=== PATIENT | female | born 1980 | race Caucasian/White ===

== ENCOUNTER 2018-04-07 06:54 | Day surgery (SDC) | payer BC ==
[2018-04-04 16:20] VITALS: BMI 52.9
--- NOTE | 2018-04-07 06:20 | P.GSHP ---
History of Present Illness H&P Date: 04/07/18 CHIEF COMPLAINT: Ventral hernia. HISTORY OF PRESENT ILLNESS: The patient is a 38-year-old female who presents with a history of swelling along the umbilicus. Findings were consistent with possible incisional hernia. Now she presents for further evaluation and management. PAST MEDICAL HISTORY: Please see list. PAST SURGICAL HISTORY: Please see list. MEDICATIONS: Please see list. ALLERGIES: Please see list. SOCIAL HISTORY: No illicit drug use FAMILY HISTORY: No reports of Crohn disease or ulcerative colitis. REVIEW OF ORGAN SYSTEMS: CONSTITUTIONAL: No reports of fevers or chills. GI: Denies any blood in stools or constipation. PHYSICAL EXAM: VITAL SIGNS: Stable GENERAL: Well-developed pleasant female in no acute distress. HEENT: No scleral icterus. Extraocular movements grossly intact. Moist buccal mucosa. NECK: Supple without lymphadenopathy. CHEST: Unlabored respirations. Equal bilateral excursions. CARDIOVASCULAR: Regular rate and rhythm. Distal 2+ pulses. ABDOMEN: Soft, nondistended. Hernia at the umbilicus. Protuberant. MUSCULOSKELETAL: No clubbing, cyanosis, or edema. ASSESSMENT: 1. Incarcerated umbilical initial ventral hernia, 4 cm. 2. Morbid obesity with BMI over 50. 3. Family history of hernias. PLAN: 1. Robotic assisted ventral hernia repair with mesh was described, at least 1.5 hours. 2. She denies any personal history of DVTs or cardiac disease. Overall, intermediate risk with BMI over 50. 3. DVT prophylaxis. 4. Antibiotics prophylaxis. 5. Time off of work at least 4 weeks was described. Past Medical History Past Medical History: Asthma, GERD/Reflux History of Any Multi-Drug Resistant Organisms: None Reported Past Surgical History: Tonsillectomy, Tubal Ligation Additional Past Surgical History / Comment(s): repair of lacerations right leg & left arm from accident years ago Past Anesthesia/Blood Transfusion Reactions: No Reported Reaction Smoking Status: Current every day smoker - Past Family History Mother Family Medical History: No Reported History Medications and Allergies Home Medications Medication Instructions Recorded Confirmed Type Albuterol Inhaler [Ventolin Hfa 1 - 2 puff INHALATION RT-Q6H PRN 04/04/18 History Inhaler] Cetirizine HCl [Zyrtec] 10 mg PO DAILY PRN 04/04/18 04/04/18 History Ibuprofen [Advil] 200 - 400 mg PO Q6HR PRN 04/04/18 04/04/18 History Allergies Allergy/AdvReac Type Severity Reaction Status Date / Time No Known Allergies Allergy Verified 04/04/18 15:48
[~2018-04-07 06:54] MED LIST: DEXAMETHASONE SOD PHOSPHATE 10 MG/ML 1 ML VIAL IV ONE; HEPARIN SODIUM,PORCINE 5,000 UNIT/ML 1 ML VIAL SQ ONE; LACTATED RINGERS 1,000 ML IV SCH; MIDAZOLAM (PF) 2 MG/2 ML VIAL IV PRN; ONDANSETRON 4 MG/2 ML VIAL IVP ONE; SCOPOLAMINE 1.5MG/72HR PATCH TRANSDERM ONE
[2018-04-07] MEDS ORDERED: LIDOCAINE 1% 20 ML VIAL (10MG/ML) FOR IV START INTRADERMA ONE (08:15)
[2018-04-07] MEDS ORDERED: fentaNYL (PF) 50 MCG/ML 2 ML AMP IV ONE (08:44)
[2018-04-07] MEDS ORDERED: fentaNYL (PF) 50 MCG/ML 2 ML AMP IVP ONE (08:46)
[2018-04-07] MEDS ORDERED: GLYCOPYRROLATE 0.2 MG/ML 2 ML VIAL ONE (09:06)
[2018-04-07] MEDS ORDERED: ROPIVACAINE 5 MG/ML 30 ML VIAL ONE (09:06)
[2018-04-07] MEDS ORDERED: NEOSTIGMINE 1 MG/ML 10 ML VIAL ONE (09:06)
[2018-04-07] MEDS ORDERED: HYDROmorphone (PF) 1 MG/ML ONE (09:06)
[2018-04-07] MEDS ORDERED: fentaNYL (PF) 50 MCG/ML 2 ML AMP ONE (09:06)
[2018-04-07] MEDS ORDERED: SUCCINYLCHOLINE CHLORIDE VIAL 200 MG/10 ML VIAL IV ONE (09:06)
[2018-04-07] MEDS ORDERED: ROCURONIUM BROMIDE 10 MG/ML 10 ML VIAL IV ONE (09:06)
[2018-04-07] MEDS ORDERED: LIDOCAINE 1% INJ 10MG/ML (20 ML MDV) ONE (09:06)
[2018-04-07] MEDS ORDERED: PROPOFOL 10 MG/ML 20 ML VIAL IV ONE (09:06)
[2018-04-07 09:30] LABS: HCT 38.4 % (34.0-46.0); HGB 12.3 gm/dL (11.4-16.0); MCH 28.1 pg (25.0-35.0); MCV 87.8 fL (80.0-100.0); Mean Platelet Volume 8.7; Platelet Count 251 k/uL (150-450); RBC 4.37 m/uL (3.80-5.40); RDW 14.2 % (11.5-15.5); WBC 11.6 k/uL (3.8-10.6)
[2018-04-07 09:39] LABS: Potassium 4.2 mmol/L (3.5-5.1)
[2018-04-07] MEDS ORDERED: BUPIVACAIN-EPI 0.25%-1:200,000 30 ML VIAL SQ ONE (09:40)
[2018-04-07] MEDS ORDERED: LACTATED RINGERS 1,000 ML IV ONE (09:41)
[2018-04-07] MEDS: HYDROmorphone 0.5 MG/0.5 ML SYRINGE IVP PRN ×4 (10:37→11:03)
--- NOTE | 2018-04-07 10:39 | P.OP ---
Date of Procedure: 04/07/18 Description of Procedure: SURGEON: HERACILO ROSE MD PREOPERATIVE DIAGNOSES: 1. Initial umbilical hernia with incarceration 2. Morbid obesity does due to excess calories, BMI 53.9 3. Chronic obstructive pulmonary disease with asthma 4. Tobacco abuse 5. Gastroesophageal reflux disease POSTOPERATIVE DIAGNOSES: 1. Initial umbilical hernia with incarceration, 4-cm involving transverse mesocolon 2. Morbid obesity does due to excess calories, BMI 53.9 3. Chronic obstructive pulmonary disease with asthma 4. Tobacco abuse 5. Gastroesophageal reflux disease OPERATION: 1. Robotic-assisted da Kaila Xi laparoscopic repair of initial incarcerated ventral hernia 4-cm with mesh, ventralight ST mesh 11.4 cm ANESTHESIA: General with local ESTIMATED BLOOD LOSS: 5 mL. SPECIMENS: None COMPLICATIONS: None. INDICATIONS: The patient is a 38-year-old female who presents ventral hernia of the umbilicus. Surgical intervention with laparoscopic versus robotic and open techniques were reviewed. Placement of mesh was also reviewed. Benefits and risks were thoroughly described. Informed consent was obtained. DESCRIPTION OF PROCEDURE: The patient was brought into the operating room and laid in supine position. After general induction, the abdomen had been prepped and draped in standard sterile fashion. Ioban draping was also placed. Prior to incision, a timeout protocol was confirmed with surgical team regarding the patient's name including procedures to be performed. The robot was primed prior to the procedure. A field block using local anesthetic was placed along hernia site including the proposed port sites. Initial incision was made with an #11 blade along the left upper quadrant. A 0 degree 5 mm laparoscopic trocar entry was performed and insufflated. An 8 mm port was placed along the right upper quadrant and another at the epigastrium under direct localization. The 5- mm port was exchanged for an 12 mm robotic port. Placements of the ports were 15 cm from the target anatomy and 10 cm apart. The Kite.lyi Xi robot was previously primed, prepped and draped then docked along the right side of the patient. I then sat at the robot Hastify Kaila Xi console where working arms of the robot including Bovie cautery connected to robotic scissors, vessel sealer, needle mobile lounge driver, and graspers placed by the educational program assistant. Fascial defect of 4 cm of the umbilicus was identified after cleaning the peritoneal fat of the abdominal wall and reducing an incarcerated transverse mesocolon of the mid transverse colon. A 12 mm port was placed along the left upper quadrant for placement of the mesh and for sutures. The incarcerated contents was reduced as the peritoneal fat was cleaned from the abdominal wall. Next, hemostasis was checked with cautery. The hernia defect was oversewn using #1 Stratafix with fascial imbrication x 3. Next, ventralight ST mesh 11.4 cm was placed with the rough side towards the abdominal wall. 2-0 VLOC 9 inch sutures were used to fixate the mesh. A final endoscopic imaging was obtained. All instruments and pneumoperitoneum were evacuated from the abdominal cavity. The da Kaila Xi robot was undocked from the patient. I re-scrubbed into the case for closure of incisions. The fascia of the 12-mm port was probed and less than 8-mm in size. The incisions were reapproximated using 4-0 Monocryl in an interrupted subcuticular fashion. Liquid glue was applied to the skin after cleansing the skin with normal saline and dilute hydrogen peroxide. An abdominal binder was placed. An umbilical dressing was placed prior. At the end of the procedure, needle, sponge, and instrument count had been verified correct by surgical supply assistant. The patient was taken to the postanesthesia care unit in stable condition. FINDINGS: 1. Initial incarcerated umbilical 4-cm hernia involving mid transverse mesocolon with intermittent bowel obstruction Plan - Discharge Summary New Discharge Prescriptions: No Action Ibuprofen [Advil] 200 - 400 mg PO Q6HR PRN PRN Reason: Pain Cetirizine HCl [Zyrtec] 10 mg PO DAILY PRN PRN Reason: allergies Albuterol Inhaler [Ventolin Hfa Inhaler] 1 - 2 puff INHALATION RT-Q6H PRN PRN Reason: Dyspnea Discharge Medication List Albuterol Inhaler [Ventolin Hfa Inhaler] 1 - 2 puff INHALATION RT-Q6H PRN [History] Cetirizine HCl [Zyrtec] 10 mg PO DAILY PRN 04/04/18 [History] Ibuprofen [Advil] 200 - 400 mg PO Q6HR PRN 04/04/18 [History]
[2018-04-07 10:43] VITALS: TEMP 97.8
--- NOTE | 2018-04-07 11:21 | P.ONQ ---
Anesthesiology Proc Note - PNB - Peripheral Nerve Block Performed Bilateral Rectus Abdominis Single Time Out Performed: Yes (0835) Procedure Start Time: 08:35 Procedure Stop Time: 08:45 Indication: Acute Post-Operative Pain, Dx/Pain Location (abdominal pain), Requested by physician Sedation Type: Sedate with meaningful contact maintained Preparation: Sterile Prep Position: Supine Catheter: None Needle Types: On-Q Needle Size: 100mm (4") Needle Gauge: 21 Technique: Ultrasound Injectate: 0.5% Ropivacaine (see comment for volume) (20ml 0.25% Ropivacaine each side) Blood Aspirated: No Pain Paresthesia on Injection Noted: No Resistance on Injection: Normal Events: Uneventful and Well Tolerated
[2018-04-07] MEDS ORDERED: diphenhydrAMINE 50 MG/ML 1 ML VIAL IVP ONE (11:32)
[2018-04-07 11:44] VITALS: RESP 16
[2018-04-07 12:15] VITALS: BP 114/70; PULSE 62
== END 2018-04-07 12:52 | disposition home or self-care (01) ==
LOC: OR 06:54
PROVIDERS: ATTEND Surgery Plastic and Reconstructive Surgery
DX: K42.0 Umbilical hernia with obstruction, without gangrene (principal); K43.6 Other and unspecified ventral hernia with obstruction, without gangrene; E66.01 Morbid (severe) obesity due to excess calories; J44.9 Chronic obstructive pulmonary disease, unspecified; F17.210 Nicotine dependence, cigarettes, uncomplicated; K21.9 Gastro-esophageal reflux disease without esophagitis; Z68.43 Body mass index [BMI] 50.0-59.9, adult; Z98.51 Tubal ligation status
CPT/HCPCS: 81025; 80051; 85027; 49653; 64488; C1781; J0330; J1200; J1644; J1100; J2710; J0690; J2405; J2001; J3010; J1170 ×2; J2795; J2704; J2250

== ENCOUNTER → 2019-02-26 | Outpatient (CLI) | payer OTHER ==
[2019-02-26 11:41] VITALS: PULSE 84; RESP 18
[2019-02-26 11:45] VITALS: BP 135/82
--- NOTE | 2019-02-28 07:40 | P.PAINCN ---
History of Present Illness - Reason for Consult Consult date: 02/26/19 - History of Present Illness This is a 39-year-old morbidly obese patient referred by Dr. Tristan Martinez with a chief complaint of chronic pain in low back,which began in October 2018 without any inciting event. Pain radiates to right buttock, posterior thigh, posterior calf, ankle associated with burning in right big toe. pain in her back is responsible for 60-80% of the pain, and right leg pain is responsible from 20- 40% of the pain. 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 she also has swelling of right lower extremity, localized to the medial aspect of leg, just below the knee, this is not painful. She has tried several different medications including Flexeril, which makes her too sleepy as well as intramuscular steroid and oral steroid pack testes helped for a few days, she was also prescribed tramadol about 1 month ago, which was helping, however she no longer has a prescription for it. She is currently taking Motrin up to 4 times a daymore than 2400 mg daily. she completed physical therapy mid January, she is doing he r exercises at home, she noted that the TENS provided her most benefit. Patient also denies new-onset weakness, bowel/bladder incontinence, or any other signs or symptoms of cauda equina syndrome. There are no signs of acute intoxication, and no indications of medication diversion or overuse. Patient HAS NOT had surgery. Patient HAS NOT had injections previously. In addition to above, 13-point review of systems is also negative for chest pain, shortness of breath, changes in vision, changes in hearing, new onset weakness, abdominal pain, diarrhea, extreme fatigue, malaise, fever, skin jered nges, homicidal or suicidal ideation, or bowel or bladder incontinence. Physical exam: Vital Signs: Reviewed in EMR GENERAL: Well appearing, in no acute distress, morbidly obese PSYCH: Mood and affect is appropriate. Awake, alert, and oriented SKIN: Skin color, texture, turgor normal, no rashes or lesions HEENT: Normocephalic, atraumatic. EOM intact CV: No pedal edema RESP: Respirations are unlabored, no audible wheezing GI: Abdomen non-distended MUSCULOSKELETAL: Bilateral lower extremity strength is normal and symmetric. No atrophy or tone abnormalities are noted.Swelling noted on medial aspect of leg, just below right knee, nontender to palpation. Patient does have some visible varicose veins on the right side. Lumbar spine: Straight leg raising in the sitting position is positive on the right side for radicular pain. tenderness to palpation over the lumbar spine and paraspinous muscles, more on the right. positive for pain with facet loading and back extension/rotation. Limited range of motion due to pain Buttocks: No pain to palpation over the PSIS, Yoselyn test is negative Extremities: Peripheral joint ROM is full and pain free without obvious instability or laxity in all four extremities. No edema or skin discolorations noted. Gait: Gait is normal NEUR: Bilateral lower extremity coordination and muscle stretch reflexes are physiologic and symmetric. Negative clonus. No loss of sensation is noted. Cranial nerves are grossly intact. Imaging: MRI lumbar spine done on 02/01/2019 at [facility] MRI shows scattered degenerative changes most pronounced at L4-5 with grade 1 anterolisthesis of L4 on L5 and facet hypertrophic changes yielding minimal central canal stenosis and mild bilateral neuroforaminal narrowing. Assessment: 1. lumbar radiculopathy 2. lumbar spondylosis 3. morbid obesity 4. Chronic nicotine dependence Plan: 1. Explanation: I counseled her on the side effects of Motrin and advised her to take it within the prescribed limits, she is taking over 2400 mg per day 2. Opioid agreement: none 3. Counseling: The patient was counseled performance on SMOKING CESSATION, BODY MASS INDEX, EXERCISE. Specifically, the patient was instructed regarding the importance of smoking cessation, weight control, and exercise in the context of both chronic pain and overall health. 4. Procedures: we will schedule right-sided transforaminal epidural steroid in jection at L4-5. If no benefit from this, patient might benefit from lumbar medial branch workup 5. Consultations: none 6. Investigations: MRI lumbar spine reviewed 7. Medications: patient was counseled on limiting total daily Motrin dose 8. Disposition: for above-mentioned procedure Past Medical History Past Medical History: Asthma, GERD/Reflux, Musculoskeletal Disorder History of Any Multi-Drug Resistant Organisms: None Reported Past Surgical History: Hernia Repair, Tonsillectomy, Tubal Ligation Additional Past Surgical History / Comment(s): repair of lacerations right leg & left arm from accident years ago, robotic repair of ventral hernia Past Anesthesia/Blood Transfusion Reactions: No Reported Reaction Smoking Status: Current every day smoker - Past Family History Mother Family Medical History: No Reported History Medications and Allergies Home Medications Medication Instructions Recorded Confirmed Type Albuterol Inhaler [Ventolin Hfa 1 - 2 puff INHALATION RT-Q6H PRN 04/04/18 02/23/19 History Inhaler] Cetirizine HCl [Zyrtec] 10 mg PO DAILY PRN 04/04/18 02/23/19 History Ibuprofen [Advil] 600 - 800 mg PO Q6HR PRN 04/04/18 02/23/19 History Allergies Allergy/AdvReac Type Severity Reaction Status Date / Time No Known Allergies Allergy Verified 02/23/19 14:28 PQRS Measure Charge Sheet Measure #130: Documentation of Current Meds in Medical Chart: Patient's medications documented in chart Measure #226: Tobacco Use: Screen & Cessation Intervention: Pt screened for tobacco use AND intervention given Measure #111: Pneumonia Vaccination: Pneumococcal vaccine administered or previously received Measure #47: Advance Care Plan: Advance care planning discussed & documented, pt chose/unable to give Measure #412: Opioid Treatment Agreement: No documentation of signed opioid treatment agreement Measure #317: Preventitive Care & Scrn High Bld Press & F/U: Normal blood pressure, f/u not required Measure #128: Body Mass Index (BMI) Screening & Follow-up: BMI documented ABOVE normal parameters - f/u documented Measure #131: Pain Assessment & Follow-up: Pain positive & plan documented, Follow-up scheduled Measure #431: Unhealthy Alcohol Use Preventative Care & Scrn: Patient not identified as an unhealthy alcohol user PQRS Narrative: Smoking Status Current every day smoker Blood Pressure 135/82 Pain Intensity [Back] 6 Scale Used Numeric (1 - 10) Hx Alcohol Use (MH) Yes Home Medications: Ambulatory Orders Albuterol Inhaler [Ventolin Hfa Inhaler] 1 - 2 puff INHALATION RT-Q6H PRN 04/04/18 Cetirizine HCl [Zyrtec] 10 mg PO DAILY PRN 04/04/18 Ibuprofen [Advil] 600 - 800 mg PO Q6HR PRN 04/04/18
== END | disposition home or self-care (01) ==
LOC: PNWHC3 11:25
PROVIDERS: ATTEND Anesthesiology
DX: G89.29 Other chronic pain (principal); M51.36 Other intervertebral disc degeneration, lumbar region; M47.26 Other spondylosis with radiculopathy, lumbar region; E66.01 Morbid (severe) obesity due to excess calories; M51.16 Intervertebral disc disorders with radiculopathy, lumbar region; F17.200 Nicotine dependence, unspecified, uncomplicated; Z68.43 Body mass index [BMI] 50.0-59.9, adult; Z79.899 Other long term (current) drug therapy
CPT/HCPCS: 99211

== ENCOUNTER 2019-03-26 08:54 | Day surgery (SDC) | payer OTHER ==
[2019-03-23 09:47] VITALS: BMI 55.7
[~2019-03-26 08:54] MED LIST changes: -DEXAMETHASONE SOD PHOSPHATE 10 MG/ML 1 ML VIAL IV ONE; -HEPARIN SODIUM,PORCINE 5,000 UNIT/ML 1 ML VIAL SQ ONE; +IOPAMIDOL M200 10 ML VIAL ONE; -MIDAZOLAM (PF) 2 MG/2 ML VIAL IV PRN; -ONDANSETRON 4 MG/2 ML VIAL IVP ONE; -SCOPOLAMINE 1.5MG/72HR PATCH TRANSDERM ONE; +methylPREDNISolone ACETATE 80 MG/ML 1 ML VIAL ONE
[2019-03-26 09:18] VITALS: RESP 16; TEMP 97.6
--- NOTE | 2019-03-26 09:43 | P.PCN ---
Date of Procedure: 03/26/19 Procedure(s) Performed: PREOPERATIVE DIAGNOSIS: 1-Lumbar radiculopathy 2-lumbar spondylosis with lumbar facet arthropathy without myelopathy POSTOPERATIVE DIAGNOSIS: Same as preop diagnosis PROCEDURE 1. Transforaminal epidural steroid injection under fluoroscopic guidance at right L4-5 level. (Fluoroscopy images stored on file in the radiology Department ) 2. Lumbar epidurogram : ANESTHESIA: Local with 1% lidocaine 3 ml only ( NO IV sedations ) EBL: Minimal PROCEDURE INDICATION: The patient with low back pain and radiculopathy symptoms unresponsive to conservative treatment. PROCEDURE DESCRIPTION / TECHNIQUE: The patient was seen and identified in the preoperative area. Risks, benefits, complications, and alternatives were discussed with the patient. The patient agreed to proceed with the procedure and signed the consent. IV was started, and vital signs were stable. Patient was taken to the OR and time out was completed. The patient was placed in the prone position on procedure table and a pillow was placed under the abdomen to reduce lumbar lordosis. The lumbosacral area was prepped and draped in the usual sterile fashion. Critical pause was taken. Vital signs were closely monitored during the procedure. Using oblique fluoroscopy, the chin of the ``Deng dog at right L4-5 level was identified, and the skin and deeper tissues just below was localized with 1% lidocaine. Subsequently, a 22-gauge 5 inch spinal needle was advanced under a tunneled view fluoroscopic guidance just underneath the chin of the ``Deng dog at the right L4-5 . Under lateral fluoroscopy, the needle was then advanced to the posterior border of the right L4-5 interforaminal space. After negative aspiration of CSF and blood and with no paresthesias, 1 mL Isovue 200 contrast dye was injected excellent epidurogram and outlining of the right nerve root Subsequently, 3 mL of block solution containing 80 mg per Medrol and 2 mL of Lidocaine 1% was injected. Needle was removed intact . At the end of the proc edure, skin was cleansed, and bandages were applied. COMPLICATIONS:none DISPOSITION / PLANS: The patient was placed in a supine position and transferred to the recovery area in a stable condition for observation. There was no evidence of lower extremity motor or sensory deficit after the procedure. Patient was discharged from the recovery room after meeting discharge criteria. Home discharge instructions were given to the patient by the staff. The patient was reexamined prior to discharge.
[2019-03-26 10:01] VITALS: BP 109/73; PULSE 83
--- NOTE | 2019-03-26 10:55 | FL ---
EXAMINATION TYPE: FL guided pain mgmt statistic DATE OF EXAM: 03/26/2019 CLINICAL HISTORY: Low back pain. TECHNIQUE: Fluoroscopy. COMPARISON: None. FINDINGS: Fluoroscopic guidance was provided during pain relief procedure performed by Dr. Valdez . A total of 6 seconds of fluoroscopic time was utilized during the procedure and two spot images ar e acquired. Images acquired shows needle localization of the lumbar spine. IMPRESSION: As Above.
== END 2019-03-26 10:20 | disposition home or self-care (01) ==
LOC: ORPAIN 08:54
PROVIDERS: ATTEND Specialist
DX: M47.26 Other spondylosis with radiculopathy, lumbar region (principal)
CPT/HCPCS: 81025; 64483; J1040; Q9966

== ENCOUNTER 2019-04-23 09:06 | Day surgery (SDC) | payer OTHER ==
[2019-04-20 09:07] VITALS: BMI 57.0
[~2019-04-23 09:06] MED LIST changes: +LIDOCAINE 1% INJ 10MG/ML (20 ML MDV) ONE
[2019-04-23 09:32] VITALS: RESP 18; TEMP 97.3
--- NOTE | 2019-04-23 10:08 | P.PCN ---
Date of Procedure: 04/23/19 Procedure(s) Performed: PREOPERATIVE DIAGNOSIS: 1-Lumbar radiculopathy 2-lumbar spondylosis with lumbar facet arthropathy without myelopathy POSTOPERATIVE DIAGNOSIS: Same as preop diagnosis PROCEDURE 1. Transforaminal epidural steroid injection under fluoroscopic guidance at right L4-5 level. (Fluoroscopy images stored on file in the radiology Department ) 2. Lumbar epidurogram : ANESTHESIA: Local with 1% lidocaine 3 ml only ( NO IV sedations ) EBL: Minimal PROCEDURE INDICATION: The patient with low back pain and radiculopathy symptoms unresponsive to conservative treatment. PROCEDURE DESCRIPTION / TECHNIQUE: The patient was seen and identified in the preoperative area. Risks, benefits, complications, and alternatives were discussed with the patient. The patient agreed to proceed with the procedure and signed the consent. IV was started, and vital signs were stable. Patient was taken to the OR and time out was completed. The patient was placed in the prone position on procedure table and a pillow was placed under the abdomen to reduce lumbar lordosis. The lumbosacral area was prepped and draped in the usual sterile fashion. Critical pause was taken. Vital signs were closely monitored during the procedure. Using oblique fluoroscopy, the chin of the ``Deng dog at right L4-5 level was identified, and the skin and deeper tissues just below was localized with 1% lidocaine. Subsequently, a 22-gauge 5 inch spinal needle was advanced under a tunneled view fluoroscopic guidance just underneath the chin of the ``Deng dog at the right L4-5 . Under lateral fluoroscopy, the needle was then advanced to the posterior border of the right L4-5 interforaminal space. After negative aspiration of CSF and blood and with no paresthesias, 1 mL Isovue 200 contrast dye was injected excellent epidurogram and outlining of the right nerve root Subsequently, 3 mL of block solution containing 80 mg per Depo-Medrol and 2 mL of Lidocaine 1% was injected. Needle was removed intact . At the end of the procedure, skin was cleansed, and bandages were applied. COMPLICATIONS:none DISPOSITION / PLANS: The patient was placed in a supine position and transferred to the recovery area in a stable condition for observation. There was no evidence of lower extremity motor or sensory deficit after the procedure. Patient was discharged from the recovery room after meeting discharge criteria. Home discharge instructions were given to the patient by the staff. The patient was reexamined prior to discharge.
--- NOTE | 2019-04-23 10:18 | FL ---
EXAMINATION TYPE: FL guided pain mgmt statistic DATE OF EXAM: 04/23/2019 CLINICAL HISTORY: Low back pain. TECHNIQUE: Fluoroscopy. COMPARISON: None. FINDINGS: Fluoroscopic guidance was provided during pain relief procedure performed by Dr. Valdez . A total of 7 seconds of fluoroscopic time was utilized during the procedure and 1 spot images are acquired. Images acquired shows needle localization of the lumbar spine. IMPRESSION: As Above.
[2019-04-23 10:46] VITALS: BP 127/80; PULSE 80
== END 2019-04-23 10:45 | disposition home or self-care (01) ==
LOC: PNWHC3 09:06
PROVIDERS: ATTEND Specialist
DX: M47.26 Other spondylosis with radiculopathy, lumbar region (principal)
CPT/HCPCS: 81025; 64483; J1040; J2001; Q9966

== ENCOUNTER → 2020-05-08 | Outpatient (CLI) | payer OTHER ==
[2020-05-08 13:16] VITALS: BP 138/90; PULSE 73; RESP 18
--- NOTE | 2020-05-08 14:09 | P.GSHP ---
History of Present Illness H&P Date: 05/08/20 Chief Complaint: Questionable mammographic abnormality in the left breast Susy is a 40-year-old white female who is being seen in consultation for Dr. Andujar, nurse practitioner Radha Srinivasan regarding a questionable asymmetric density in the lower outer aspect of the left breast. This was her first mammogram. [place] [address] this was 3-D screening. On that evaluation there was noted to be an asymmetric density in the lower outer aspect of the left breast and spot compression [place] [address]. On these a persistent density was noted an ultrasound of the left breast was recommended. This was performed on the same date and it was felt that there was no ultrasound abnormality to correspond to the radiographic mammographic abnormality. There was a lesion in the skin which was 1 x 0.8 cm. It was therefore recommended a stereotactic core biopsy be performed. However the patient today had repeat left breast mammogram performed and on the repeat left breast mammogram there is no persistence of the density. The patient does not feel any lumps masses or nodules in either breast. She is not complaining of any nipple discharge or skin changes. She is not complaining of any trauma or infection in the breast. Caffeine: One pop per day Nicotine: 1 PPD/12 years lary-bromine: occasional hormones: none Family history: Maternal great-grandmother breast cancer Hormonal history: Menarche:13 , breast fed: no periods regular, heavy BCP: 7 years, stopped 15 years ago Surgical history: Right leg and left arm secondary to trauma Tubal ligation Abdominal hernia Medical history: Asthma Obesity Pain lower back with shooting into the knee bone on boen piain in her left knee Social History: smoke: 1 PPD Alcohol: Negative Drugs: Negative - Constitutional Constitutional: Denies chills, Denies fever - EENT Eyes: denies blurred vision, denies pain Ears: deny: decreased hearing, tinnitus Ears, nose, mouth and throat: Denies headache, Denies sore throat - Breasts Breasts: bilateral: as per HPI - Cardiovascular Cardiovascular: Denies chest pain, Denies shortness of breath - Respiratory Comment: asthma - Gastrointestinal Gastrointestinal: Denies abdominal pain, Denies diarrhea, Denies nausea, Denies vomiting - Genitourinary (Female) Genitourinary: Denies dysuria, Denies hematuria - Menstruation Comment: recent ultrasound noted thickening of uterus to follow up with terrazzo finisher - Musculoskeletal Musculoskeletal: Reports as per HPI - Integumentary Integumentary: Denies pruritus, Denies rash - Neurological Comment: shooting pain down left leg Neurological: Reports as per HPI - Psychiatric Psychiatric: Denies anxiety, Denies depression - Endocrine Endocrine: Denies fatigue, Denies weight change - Hematologic/Lymphatic Comment: none - Allergic/Immunologic Allergic/Immunologic: Reports seasonal allergies Past Medical History Past Medical History: Asthma, GERD/Reflux, Musculoskeletal Disorder History of Any Multi-Drug Resistant Organisms: None Reported Past Surgical History: Hernia Repair, Tonsillectomy, Tubal Ligation Additional Past Surgical History / Comment(s): repair of lacerations right leg & left arm from accident years ago, robotic repair of ventral hernia,, PAIN CLINIC PROCEDURE Past Anesthesia/Blood Transfusion Reactions: No Reported Reaction Past Psychological History: No Psychological Hx Reported Smoking Status: Current every day smoker Past Alcohol Use History: Occasional Additional Past Alcohol Use History / Comment(s): 1/2ppd for 20 yrs. Past Drug Use History: None Reported - Past Family History Mother Family Medical History: No Reported History Medications and Allergies Home Medications Medication Instructions Recorded Confirmed Type Albuterol Inhaler (Mhu) [Ventolin 1 - 2 puff INHALATION RT-Q6H PRN 04/04/18 05/08/20 History Hfa Inhaler] Cetirizine HCl [Zyrtec] 10 mg PO DAILY PRN 04/04/18 05/08/20 History Ibuprofen [Advil] 600 - 800 mg PO Q6HR PRN 04/04/18 05/08/20 History Multivitamin [Multivitamins Adult 1 each PO DAILY 05/07/20 05/08/20 History Gummies] traMADol HCL 50 mg PO BID 05/07/20 05/08/20 History Allergies Allergy/AdvReac Type Severity Reaction Status Date / Time No Known Allergies Allergy Verified 05/08/20 13:17 Surgical - Exam Vital Signs Pulse Resp BP Pulse Ox 73 18 138/90 96 05/08/20 13:13 05/08/20 13:13 05/08/20 13:13 05/08/20 13:13 BMI 54.2 - General moderate distress - Eyes normal ocular movement - ENT normal pinna, normal nares - Neck no masses, trachea midline - Respiratory normal respiratory effort, clear to auscultation left: wheezing - Cardiovascular Rhythm: regular Heart Sounds: normal: S1, S2 - Abdomen Abdomen: soft, non tender, no guarding, no rigid, no rebound - Integumentary normal turgor - Neurologic no disoriented, no combative - Musculoskeletal difficult gait pain left knee Soft tissue fullness right leg inferior to the patella/patient states that she has had an MRI of this and has been evaluated by vascular surgery - Psychiatric oriented to time, oriented to person, oriented to place, speech is normal, memory intact Breast exam: BRA: 48DDD inspection: Bilateral grade 3 ptosis Palpation: Right breast: Folliculitis of the skin of the breast along the periareolar region, fibrocystic breast changes and multiple positional exam, no dominant masses or nodules of concern Right axilla: No adenopathy of concern Left breast: Folliculitis of the skin of the breast along the periareolar region, multiple positional exam fibrocystic changes, no dominant masses or nodules of concern Left axilla: No adenopathy of concern Bilateral heel hidradenitis of the axilla was noted Results Mammogram and ultrasound results reviewed in person with radiologist Dr. Ruiz Does not appear to have persistent density to require a biopsy of the left breast Skin lesion seen on ultrasound does not have any corresponding probable change and was most likely related to an area of folliculitis/hidradenitis which has resolved I have reviewed the patient's notes from [facility] by Radha Srinivasan NP Assessment and Plan Assessment: Impression: Asthma Obesity Pain lower back with shooting into the knee bone on bone pain in her left knee Soft tissue fullness inferior to the patella on the right/patient is followed with vascular surgery with respect to this and had an MRI as per the patient Fibrocystic breast changes Abnormal left breast mammogram and ultrasound repeat radiographs appear to have this area resolved Bilateral axillary hidradenitis stable Plan: 1. Patient encouraged to continue losing weight, avoid caffeine, and stop smoking the patient's fibrocystic breast disease may be benefited from these and lifestyle modifications 2. Patient to follow up here if any questions or concerns 3. Bilateral mammogram 1 year 4. At this time no need for a open biopsy 5. Patient encouraged to use antibacterial soap to wash the areas of hidradenitis and keep these from flaring again After review of the patient's most recent mammogram with radiology the decision for stereotactic core biopsy was canceled. The patient understands this and she will have a bilateral mammogram in 1 year with physician exam at that time. CC: Dr. Pratima Clemente Encounter 40 minutes time spent in reviewing medical records, physical examination, and counseling.
== END | disposition home or self-care (01) ==
LOC: WWCWWP 11:25
PROVIDERS: ATTEND Surgery
DX: N60.12 Diffuse cystic mastopathy of left breast (principal); E66.9 Obesity, unspecified; J45.909 Unspecified asthma, uncomplicated; M54.5 Low back pain; M25.569 Pain in unspecified knee; L73.2 Hidradenitis suppurativa; Z68.43 Body mass index [BMI] 50.0-59.9, adult; F17.210 Nicotine dependence, cigarettes, uncomplicated

== ENCOUNTER → 2020-05-08 | Outpatient (CLI) | payer OTHER ==
--- NOTE | 2020-05-08 12:17 | MM ---
Reason for exam: follow-up at short interval from prior study. Last mammogram was performed 1 month ago. History: Family history of breast cancer in grandmother. Took hormonal contraceptives beginning at age 15. Physical Findings: Nurse did not find any significant physical abnormalities on exam. MG 3D Diag Mammo W/Cad LT CC, MLO, LM, and XCCL view(s) were taken of the left breast. Prior study comparison: April 02, 2020, mammogram. March 24, 2020, mammogram. There is no discrete abnormality including area of concern. No significant new findings when compared with previous films. These results were verbally communicated with the patient and result sheet given to the patient on 05/08/20. ASSESSMENT: Probably benign, BI-RAD 3 RECOMMENDATION: Follow-up diagnostic mammogram of the left breast in 5 months. Back on schedule for September 2020.
== END | disposition home or self-care (01) ==
LOC: RADMAMWWP 11:22
PROVIDERS: ATTEND Surgery
DX: R92.8 Other abnormal and inconclusive findings on diagnostic imaging of breast (principal)
CPT/HCPCS: 77061; 77065

== ENCOUNTER → 2021-04-30 | Outpatient (CLI) | payer OTHER ==
[2021-04-30 10:13] VITALS: BP 151/80; PULSE 99; RESP 17; TEMP 98
== END ==
LOC: WWCWWP 09:33
PROVIDERS: ATTEND Surgery
DX: Z53.9 Procedure and treatment not carried out, unspecified reason (principal)

== ENCOUNTER → 2024-01-06 | Outpatient (CLI) | payer BC, OTHER ==
--- NOTE | 2024-01-09 11:55 | MM ---
Reason for Exam: Screening (asymptomatic). Last mammogram was performed 3 year(s) and 9 month(s) ago. Patient History: Menarche at age 13. First Full-Term at age 27. Premenopausal. Hormonal Contraceptives, from age 15 until age 33. Maternal grandmother had breast cancer. Last menstrual period: 12/17/2023 Risk Values: Lani 5 year model risk: 0.8%. NCI Lifetime model risk: 10.8%. Prior Study Comparison: 03/24/2020 Screening Mammogram, Unknown. 04/02/2020 Screening Mammogram, Unknown. 05/08/2020 Left Diagnostic Mammogram, [facility]. Tissue Density: The breasts are almost entirely fatty. Findings: Analyzed By CAD. Right breast: There is no suspicious group of microcalcifications or new suspicious mass. Left breast: There is no suspicious group of microcalcifications or new suspicious mass. Overall Assessment: Negative, BI-RAD 1 Management: Screening Mammogram of both breasts in [address] [facility] will attempt to contact patient to return for supplemental views and ultrasound if indicated. Patient should continue monthly self-breast exams. A clinical breast exam by your physician is recommended on an annual basis. This exam should not preclude additional follow-up of suspicious palpable abnormalities. Note on Lani scores and lifetime risk: 1. A Lani score greater than 3% is considered moderate risk. If this is the case, consider specialist referral to assess eligibility for a risk reducing agent. 2. If overall lifetime risk for the development of breast cancer is 20% or higher, the patient may qualify for future screening with alternating mammogram and breast MRI. [facility], , 01/09/2024 11:52 AM. Electronically signed and approved by: Krish Burns DO
== END | disposition home or self-care (01) ==
LOC: RADMAMWWP 11:05
PROVIDERS: ATTEND Family Medicine
DX: Z12.31 Encounter for screening mammogram for malignant neoplasm of breast
CPT/HCPCS: 77067